=== PATIENT | male | born 1965 | race American Indian/Alaskan Native ===

== ENCOUNTER 2022-03-24 13:06 | Inpatient (IN) | payer OTHER ==
[2022-03-24] MEDS ORDERED: MORPHINE 4 MG/1 ML INJ IV ONE (15:12)
[2022-03-24] MEDS ORDERED: SODIUM CHLORIDE 0.9% 1000 ML 1,000 ML IV ONE (15:12)
[2022-03-24] MEDS ORDERED: ONDANSETRON 4 MG/2 ML INJ IV ONE (15:12)
[2022-03-24] MEDS ORDERED: PANTOPRAZOLE 40 MG INJ IV ONE (15:13)
[2022-03-24 15:48] LABS: Basophils % (Auto) 0.1 % (0.0-1.8); Eosinophils % (Auto) 0.1 % (0.0-4.3); Hematocrit 22.3 % (35.5-45.6); Hemoglobin 6.8 gm/dl (11.8-15.2); Lymphocytes % (Auto) 11.8 % (13.4-35.0); Mean Corpuscular HGB Conc 31 % (32-34); Monocytes # (Auto) 0.4 K/mm3 (0.0-0.8); Monocytes % (Auto) 2.7 % (0.0-7.3); Platelet Count 349 K/mm3 (140-440); Red Blood Count 3.56 M/mm3 (3.65-5.03); Red Cell Distribution Width 19.3 % (13.2-15.2)
[2022-03-24 16:04] LABS: Alanine Aminotransferase 12 units/L (7-56); Albumin 3.8 g/dL (3.9-5); BUN/Creatinine Ratio 6; Blood Urea Nitrogen 7 mg/dL (9-20); Calcium 8.7 mg/dL (8.4-10.2); Hemolysis Index 3
[2022-03-24 16:23] LABS: Mean Corpuscular Volume 63 fl (84-94)
--- NOTE | 2022-03-24 16:55 | Emergency Department Report ---
ED Abdominal Pain HPI - General Chief Complaint: GI Bleed Stated Complaint: RECTAL BLEED Time Seen by Provider: 03/24/22 15:44 Source: patient, EMS Mode of arrival: Wheelchair Limitations: No Limitations - History of Present Illness Initial Comments: 56-year-old male history of hypertension [unknown medications], anemia presenting with abdominal pain rectal bleeding. Patient reports this morning he went to the bathroom and large amount of blood with clots. reports that he has had episodes today when he goes to the bathroom and just blood comes out. States he has had about 4 episodes of this before coming to the emergency department. No diarrhea, symptoms associated with abdominal pain, no vomiting, patient reports he has been feeling well up until this morning. reports about a year ago patient had a colonoscopy done and was told he has some "noncancerous Polyps". He has since not followed up at the Medical. He reports weakness, denies fever chills, no headache, no dizziness, no vision changes. MD Complaint: abdominal pain Severity scale (0 -10): 8 - Related Data Allergies Allergy/AdvReac Type Severity Reaction Status Date / Time No Known Allergies Allergy Unverified 03/24/22 13:28 ED Review of Systems ROS: Stated complaint: RECTAL BLEED Other details as noted in HPI Constitutional: see HPI ENT: as per HPI Respiratory: denies: cough Cardiovascular: denies: chest pain, palpitations, edema Gastrointestinal: abdominal pain, melena. denies: nausea, vomiting Genitourinary: denies: frequency Musculoskeletal: denies: back pain Skin: denies: rash, lesions Neurological: denies: headache, weakness Psychiatric: denies: depression, auditory hallucinations, homicidal thoughts, suicidal thoughts Hematological/Lymphatic: denies: easy bleeding ED Past Medical Hx - Past Medical History Previous Medical History?: Yes Additional medical history: alcohol abuse ED Physical Exam - General Limitations: No Limitations General appearance: alert, in no apparent distress, other (Slender pale appearing male in no acute distress) - Head Head exam: Present: atraumatic - Eye Eye exam: Present: normal appearance (Pale) Pupils: Present: normal accommodation - ENT ENT exam: Present: normal exam - Neck Neck exam: Present: normal inspection - Respiratory Respiratory exam: Present: normal lung sounds bilaterally - Cardiovascular Cardiovascular Exam: Present: regular rate, normal rhythm - GI/Abdominal GI/Abdominal exam: Present: soft, tenderness. Absent: distended - Rectal Rectal exam: Present: normal rectal tone, heme (+) stool, bloody stool - Extremities Exam Extremities exam: Present: normal inspection, full ROM - Back Exam Back exam: Present: normal inspection, full ROM. Absent: CVA tenderness (R), CVA tenderness (L) - Neurological Exam Neurological exam: Present: alert, oriented X3, CN II-XII intact, normal gait - Skin Skin exam: Present: warm, dry, intact, normal color ED Course Vital Signs 03/24/22 13:07 Temperature 98.2 F Pulse Rate 80 Respiratory 16 Rate Blood Pressure 117/87 [Left] O2 Sat by Pulse 96 Oximetry - Consultations Consultation #1: 03/24/22 [address] centeno regarding patient Dr. Centeno gastroenterology 03/24/22 20:17 ED Medical Decision Making - Lab Data Result diagrams: 03/24/22 15:09 03/24/22 15:09 - Medical Decision Making 56-year-old male history of hypertension [unknown medications], anemia presenting with abdominal pain rectal bleeding. Patient reports this morning he went to the bathroom and large amount of blood with clots. reports that he has had episodes today when he goes to the bathroom and just blood comes out. States he has had about 4 episodes of this before coming to the emergency department. No diarrhea, symptoms associated with abdominal pain, no vomiting, patient reports he has been feeling well up until this morning. reports about a year ago patient had a colonoscopy done and was told he has some "noncancerous Polyps". He has since not followed up at the Medical. He reports weakness, denies fever chills, no headache, no dizziness, no vision c hanges. s. Patient reports history of blood transfusions, states he has had transfusions in the past because "he loses blood and they do not seem to know the cause" MPRESSION: 1. There is abnormal wall thickening in the right and proximal transverse colon. The appearance is most suspicious for colitis. 2017-spoke with the hospitalist Dr. Velazquez , "Dr. Wright will be admitting and putting orders go ahead and transfuse 2 units of packed red blood cells". All of the others placed at this time, patient remained stable, I have updated them on the plan for transfusion and admission, also seen by contact person Dr. MIN. Have ordered that type and screen previously, I have called the blood bank to get the blood ready for transfusion. And have also notified the charge nurse patient needs to be moved to the main ED for transfusion His vital signs are stable at this time, pain is controlled. Critical care attestation.: If time is entered above; I have spent that time in minutes in the direct care of this critically ill patient, excluding procedure time. ED Disposition Clinical Impression: Colitis, GI bleed, Hypertension, Abdominal pain Disposition: ADMITTED INPATIENT Is pt being admited?: No Does the pt Need Aspirin: No Condition: Stable Instructions: Hypertension (ED) Referrals: PRIMARY CARE, [Primary Care Provider] - 3-5 Days Forms: Accompanied Note
--- NOTE | 2022-03-24 17:18 | Cat Scan Report ---
CT ABDOMEN AND PELVIS WITH CONTRAST INDICATION / CLINICAL INFORMATION: rectal bleed, abd pain 100ml of [id number]. TECHNIQUE: Axial CT images were obtained through the abdomen and pelvis after 100 cc of Omnipaque [address] scans at this location are performed using CT dose reduction for ALARA by means of automated exposure control. COMPARISON: None available. FINDINGS: LOWER CHEST: No significant abnormality. LIVER: There are 2 hemangiomas in the liver one in the right lobe superiorly and one near the caudate lobe. Both of these show peripheral nodular enhancement measuring approximately 2.3 and 2 cm in diam eter respectively. GALLBLADDER: No significant abnormality. BILE DUCTS: No significant abnormality. PANCREAS: No significant abnormality. SPLEEN: No significant abnormality. ADRENALS: No significant abnormality. RIGHT KIDNEY / URETER: No significant abnormality. LEFT KIDNEY / URETER: No significant abnormality. STOMACH / SMALL BOWEL: No significant abnormality. COLON: There is wall thickening in the right colon and proximal transverse colon. There are scattered diverticula in the colon. APPENDIX: No significant abnormality. PERITONEUM: No free fluid. No free air. No fluid collection. LYMPH NODES: No significant adenopathy. AORTA / ARTERIES: No significant abnormality. IVC / VEINS: No significant abnormality. URINARY BLADDER: No significant abnormality. REPRODUCTIVE ORGANS: No significant abnormality. ADDITIONAL FINDINGS: None. SKELETAL SYSTEM: There is an intramedullary nail system in the left femur. No acute abnormality. IMPRESSION: 1. There is abnormal wall thickening in the right and proximal transverse colon. The appearance is mo st suspicious for colitis. Signer Name: Edgar Haines MD Signed: 03/24/2022 5:14 PM Workstation Name: [id number]
[2022-03-24] MEDS ORDERED: PIPERACIL/TAZOBACTA 4.5/NS 100 4.5 GM/100 ML VIAL IV ONE (18:33)
[2022-03-24 19:21] LABS: INR 1.05 (0.87-1.13)
[2022-03-24] MEDS ORDERED: SODIUM CHLORIDE 0.9% 500 ML 500 ML IV ONE ×2 (20:13→20:14)
--- NOTE | 2022-03-24 20:33 | Gastroenterology Consultation ---
History of Present Illness - Reason for Consult Consult date: 03/24/22 GI bleed Requesting physician: BERNARDINO LAMB - History of Present Illness This is a 56-year-old male with history of GI bleed, diverticulitis, alcohol abuse presenting to the ED for 1 day history of hematochezia. GI consulted for evaluation for GI bleed. Patient reports having episodes of loose stool along with bright red blood. Symptoms started yesterday. Initially he had a diffuse abdominal pain but the pain has improved and currently without any abdominal pain. He does report associated nausea vomiting but no coffee-ground emesis or hematemesis. Denies any fever or chills. Patient reports being admitted at the [facility] few months ago for similar symptoms with GI bleed. Patient states that he had EGD and colonoscopy but not sure about the findings. Denies any recent NSAID use or blood thinning medication use. Medication list reviewed. Past History Past Medical History: other (diverticulitis) Past Surgical History: No surgical history Social history: lives with family Family history: no significant family history Medications and Allergies Allergies Allergy/AdvReac Type Severity Reaction Status Date / Time No Known Allergies Allergy Unverified 03/24/22 13:28 Review of Systems - Review of Systems All systems: negative Constitutional: no weight loss, no fever, no chills Ears, Nose, Throat: no difficulty swallowing Cardiovascular: no chest pain Gastrointestinal: abdominal pain, nausea, vomiting, hematochezia Neurological: weakness Psychiatric: no anxiety Endocrine: no cold intolerance Hematologic/Lymphatic: no easy bruising Allergic/Immunologic: no wheezing Exam - Constitutional Vital Signs: Temp Pulse Resp BP Pulse Ox 98.2 F 72 18 165/97 99 03/24/22 20:01 03/24/22 20:01 03/24/22 20:01 03/24/22 20:01 03/24/22 20:01 General appearance: no acute distress - EENT Eyes: EOM intact - Neck Neck: supple - Respiratory Respiratory effort: normal - Cardiovascular Rhythm: regular Heart Sounds: Present: S1 & S2 - Gastrointestinal General gastrointestinal: Present: soft, non-tender, non-distended - Integumentary Integumentary: Present: clear, warm - Neurologic Neurological: alert and oriented x3 - Psychiatric Psychiatric: appropriate mood/affect - Labs CBC & Chem 7: 03/24/22 15:09 03/24/22 15:09 Lab Results: Laboratory Results - last 24 hr 03/24/22 03/24/22 03/24/22 15:09 15:09 18:39 WBC 16.9 H RBC 3.56 L Hgb 6.8 L Hct 22.3 L MCV 63 L MCH 19 L MCHC 31 L RDW 19.3 H Plt Count 349 Lymph % (Auto) 11.8 L [place] % (Auto) 2.7 Eos % (Auto) 0.1 Baso % (Auto) 0.1 Lymph # (Auto) 2.0 [place] # (Auto) 0.4 Eos # (Auto) 0.0 Baso # (Auto) 0.0 Seg Neutrophils % 85.3 H Seg Neutrophils # 14.4 H PT 15.2 H INR 1.05 APTT 27.0 Sodium 127 L Potassium 4.3 Chloride 92.2 L Carbon Dioxide 20 L Anion Gap 19 BUN 7 L Creatinine 1.1 Estimated GFR > 60 BUN/Creatinine Ratio 6 Glucose 121 H Lactic Acid Calcium 8.7 Total Bilirubin 0.50 AST 25 ALT 12 Alkaline Phosphatase 87 Total Protein 6.5 Albumin 3.8 L Albumin/Globulin Ratio 1.4 Blood Type Crossmatch 03/24/22 03/24/22 18:39 19:05 WBC RBC Hgb Hct MCV MCH MCHC RDW Plt Count Lymph % (Auto) [place] % (Auto) Eos % (Auto) Baso % (Auto) Lymph # (Auto) [place] # (Auto) Eos # (Auto) Baso # (Auto) Seg Neutrophils % Seg Neutrophils # PT INR APTT Sodium Potassium Chloride Carbon Dioxide Anion Gap BUN Creatinine Estimated GFR BUN/Creatinine Ratio Glucose Lactic Acid 1.60 Calcium Total Bilirubin AST ALT Alkaline Phosphatase Total Protein Albumin Albumin/Globulin Ratio Blood Type AB POSITIVE Crossmatch See Detail - Imaging CT Scan: report reviewed Assessment and Plan # Lower GI bleed # hematochezia # colitis -Symptoms of rectal bleeding x1 day. -CT abdomen pelvis concerning for colonic wall thickening and colitis. -Per patient, patient had history of GI bleed with recent admission at [facility] undergoing EGD colonoscopy. -Currently hemodynamically stable. re: -Continue with empiric antibiotic. -Please attempt to obtain records from [facility] especially endoscopic procedure report. -Continue to monitor hemoglobin and transfuse as needed. -Given likely source of bleeding as colitis, will hold off colonoscopy at this time. -If persistent diarrhea, please check for C. difficile. - Patient Problems (1) Colitis Current Visit: Yes Status: Acute (2) GI bleed Current Visit: Yes Status: Acute
[2022-03-24] MEDS ORDERED: ACETAMINOPHEN 325 MG TAB PO PRN (21:38)
[2022-03-24] MEDS ORDERED: MORPHINE 2 MG/1 ML INJ IV PRN (21:38)
[2022-03-24] MEDS ORDERED: MORPHINE 4 MG/1 ML INJ IV PRN (21:38)
[2022-03-24] MEDS ORDERED: ONDANSETRON 4 MG/2 ML INJ IV PRN (21:38)
[2022-03-24] MEDS ORDERED: LORazepam 2 MG/ML VIAL IV PRN ×3 (21:41)
[2022-03-24] MEDS ORDERED: SODIUM CHLORIDE 0.9% 1000 ML 1,000 ML IV SCH (21:45)
--- NOTE | 2022-03-24 21:51 | History and Physical Report ---
History of Present Illness Date of examination: 03/24/22 Date of admission: 03/24/2022 Chief complaint: Abdominal Pain History of present illness: 56-year-old male with known history of hypertension, anemia presenting to the emergency room today complaining of abdominal pain and bloody stool. Bloody stool was central started today. He denies any , denies any nausea or vomiting, denies any use of nonsteroidal anti-inflammatory medication. He however feels weak but denies any fever or chills, no headache or dizziness, no chest pain or shortness of breath. Patient indicates that he had a colonoscopy done about a year ago and was told he has noncancerous polyps. Patient also had a recent admission into [facility] for GI bleed had EGD and colonoscopy, findings unclear. Patient also admits that he drinks alcohol almost on a daily basis. Last alc ohol intake was about 24 hours ago. Drinks about 6 packs of beer daily. He also uses tobacco on a daily basis. He denies any other illicit drug use. Work-up in the emergency room today, lab reveals hemoglobin of 6.8 and hematocrit of 22.3. Sodium of 127 CT of the abdomen and pelvis reveals abnormal wall thickening in the right and proximal transverse colon. Appearance most suspicious for colitis. Sales Technician on-call has been consulted by the ER physician. Patient will be promptly evaluated. Meanwhile patient placed on proton pump inhibitor, empiric IV antibiotics and will be transfused with packed red blood cells. Past History Past Medical History: other (diverticulitis) Past Surgical History: No surgical history Social history: lives with family, smoking, alcohol abuse (Drinks alcohol daily) Family history: no significant family history Medications and Allergies Allergies Allergy/AdvReac Type Severity Reaction Status Date / Time No Known Allergies Allergy Verified 03/24/22 21:41 Active Meds: Active Medications Acetaminophen (Acetaminophen 325 Mg Tab) 650 mg PO Q4H PRN PRN Reason: Pain MILD(1-3)/Fever >100.5/DEL ROSARIO Sodium Chloride (Nacl 0.9% 1000 Ml) 1,000 mls @ 75 mls/hr IV DIRECT GUIDO Lorazepam (Lorazepam 2 Mg/Ml Vial) 2 mg IV Q1H PRN PRN Reason: CIWA-Ar 8-15 Lorazepam (Lorazepam 2 Mg/Ml Vial) 4 mg IV Q1H PRN PRN Reason: CIWA-Ar 16-25 Lorazepam (Lorazepam 2 Mg/Ml Vial) 4 mg IV Q15MIN PRN PRN Reason: CIWA-Ar >25 Morphine Sulfate (Morphine 2 Mg/1 Ml Inj) 2 mg IV Q4H PRN PRN Reason: Pain, Moderate (4-6) Morphine Sulfate (Morphine 4 Mg/1 Ml Inj) 4 mg IV Q4H PRN PRN Reason: Pain , Severe (7-10) Ondansetron HCl (Ondansetron 4 Mg/2 Ml Inj) 4 mg IV Q8H PRN PRN Reason: Nausea And Vomiting Sodium Chloride (Sodium Chloride 0.9% 10 Ml Flush Syringe) 10 ml IV BID GUIDO Sodium Chloride (Sodium Chloride 0.9% 10 Ml Flush Syringe) 10 ml IV PRN PRN PRN Reason: LINE FLUSH Review of Systems Constitutional: no fever, no chills Ears, nose, mouth and throat: no nasal congestion, no sore throat Cardiovascular: no chest pain, no palpitations Respiratory: no cough, no shortness of breath Gastrointestinal: abdominal pain, hematochezia, no nausea, no vomiting, no diarrhea Genitourinary Male: no dysuria, no hematuria, no flank pain Musculoskeletal: no neck pain, no low back pain Integumentary: no rash, no pruritis Neurological: no headaches, no confusion Psychiatric: no anxiety, no depression Endocrine: no polyphagia, no polydipsia, no polyuria, no nocturia Exam - Constitutional Vitals: Temp Pulse Resp BP Pulse Ox 98.2 F 76 16 107/56 100 03/24/22 21:33 03/24/22 21:33 03/24/22 21:33 03/24/22 21:33 03/24/22 21:33 General appearance: Present: no acute distress, well-nourished, other (Moderate pallor) - EENT Eyes: Present: PERRL, EOM intact. Absent: scleral icterus ENT: hearing intact, clear oral mucosa, dentition normal - Neck Neck: Present: supple - Respiratory Respiratory effort: normal Respiratory: bilateral: CTA - Cardiovascular Rhythm: regular Heart Sounds: Present: S1 & S2. Absent: gallop, systolic murmur, diastolic murmur - Extremities Extremities: no ischemia, pulses intact, pulses symmetrical, No edema, normal temperature, normal color, Full ROM Peripheral Pulses: within normal limits - Abdominal General gastrointestinal: Present: soft, non-tender, non-distended, normal bowel sounds. Absent: mass - Integumentary Integumentary: Present: clear, warm, dry, normal turgor. Absent: rash - Musculoskeletal Musculoskeletal: strength equal bilaterally - Psychiatric Psychiatric: appropriate mood/affect, intact judgment & insight, memory intact, cooperative - Neurologic Neurologic: CNII-XII intact, no focal deficits, moves all extremities Results - Labs CBC & Chem 7: 03/24/22 15:09 03/25/22 05:15 Labs: Abnormal lab results 03/24/22 03/24/22 03/24/22 Range/Units 15:09 15:09 18:39 WBC 16.9 H (4.5-11.0) K/mm3 RBC 3.56 L (3.65-5.03) M/mm3 Hgb 6.8 L (11.8-15.2) gm/dl Hct 22.3 L (35.5-45.6) % MCV 63 L (84-94) fl MCH 19 L (28-32) pg MCHC 31 L (32-34) % RDW 19.3 H (13.2-15.2) % Lymph % (Auto) 11.8 L (13.4-35.0) % Seg Neutrophils % 85.3 H (40.0-70.0) % Seg Neutrophils # 14.4 H (1.8-7.7) K/mm3 PT 15.2 H (12.2-14.9) Sec. Sodium 127 L (137-145) mmol/L Chloride 92.2 L (98-107) mmol/L Carbon Dioxide 20 L (22-30) mmol/L BUN 7 L (9-20) mg/dL Glucose 121 H (75-100) mg/dL Albumin 3.8 L (3.9-5) g/dL Crossmatch 03/24/22 Range/Units 18:39 WBC (4.5-11.0) K/mm3 RBC (3.65-5.03) M/mm3 Hgb (11.8-15.2) gm/dl Hct (35.5-45.6) % MCV (84-94) fl MCH (28-32) pg MCHC (32-34) % RDW (13.2-15.2) % Lymph % (Auto) (13.4-35.0) % Seg Neutrophils % (40.0-70.0) % Seg Neutrophils # (1.8-7.7) K/mm3 PT (12.2-14.9) Sec. Sodium (137-145) mmol/L Chloride (98-107) mmol/L Carbon Dioxide (22-30) mmol/L BUN (9-20) mg/dL Glucose (75-100) mg/dL Albumin (3.9-5) g/dL Crossmatch See Detail Assessment and Plan Assessment: 1.GI Bleed 2.Colitis 3.Hypertension 4.Alcohol Abuse 5.Tobacco Abuse Plan: 1.Admit and made NPO 2.Started on Proton pump inhibitor 3.Consult placed to Sales Technician evaluation and recommendation 4.Will monitor CBC. 5. We will also place patient on CIWA protocol. DVT Prophylaxis:Sequential Compression Device Code Status: Full Code
[2022-03-25] MEDS ORDERED: hydrALAZINE 20 MG/1 ML INJ IV PRN (05:27)
[2022-03-25 06:11] LABS: BUN/Creatinine Ratio 9; Blood Urea Nitrogen 10 mg/dL (9-20); Calcium 8.1 mg/dL (8.4-10.2); Hemolysis Index 2
[2022-03-25] MEDS ORDERED: PIPERACILLIN/TAZOBACTAM 3.375 3.375 GM/50 ML BAG IV SCH (07:00)
[2022-03-25] MEDS: PIPERACILLIN/TAZOBACTAM 3.375 3.375 GM/50 ML BAG IV SCH ×2 (09:20→14:21)
[2022-03-25 09:47] LABS: Hematocrit 20.2 % (35.5-45.6); Hemoglobin 6.8 gm/dl (11.8-15.2); Mean Corpuscular HGB Conc 34 % (32-34); Platelet Count 248 K/mm3 (140-440); Red Blood Count 3.07 M/mm3 (3.65-5.03)
[2022-03-25 09:48] LABS: Mean Corpuscular Volume 66 fl (84-94); Red Cell Distribution Width 23.5 % (13.2-15.2)
--- NOTE | 2022-03-25 11:05 | Discharge Summary ---
Providers - Providers Date of Admission: 03/24/22 21:38 Date of discharge: 03/25/22 Attending physician: FREDY HERRERA 03/24/22 20:25 Consult to Physician [CONS] Stat Comment: Consulting Provider: CHAPIS BRYSON Physician Instructions: Reason For Exam: GI BLEED Primary care physician: PROVER Hospitalization Reason for admission: Anemia, hematochezia Condition: Stable Hospital course: This is a 56-year-old male with history of GI bleed, diverticulitis, alcohol abuse presenting to the ED for 1 day history of hematochezia. GI consulted for evaluation for GI bleed. Patient reported having episodes of loose stool along with bright red blood. Symptoms started the day [facility] [employer]. Initially he had a d iffuse abdominal pain but the pain has improved and currently without any abdominal pain. He did report associated nausea vomiting but no coffee-ground emesis or hematemesis. Patient reports being admitted at the [facility] few months ago for similar symptoms with GI bleed. Patient states that he had EGD and colonoscopy but not sure about the findings. Denies any recent NSAID use or blood thinning medication use. The patient was admitted with diagnosis of lower GI bleed, hematochezia and colitis. Patient was started on empiric antibiotics. GI attempting to obtain old records from the [facility]. Patient received 1 unit of PRBCs. We were planning to continue IV antibiotics for colitis and await for findings for endoscopy. However, patient did not want to wait for further hospitalization and work-up. Therefore, patient has opted to sign out AMA. Risk of leaving the hospital were discussed with the patient including bleeding and . Dedicated discharge time 32 minutes Disposition: LEFT AGAINST MEDICAL ADVICE Final Discharge Diagnosis (Prints w/discharge instructions): Lower GI bleed, hematochezia, colitis, anemia requiring blood transfusion Core Measure Documentation - Palliative Care Palliative Care/ Comfort Measures: Not Applicable - Core Measures Any of the following diagnoses?: none Exam - Constitutional Vitals: Temp Pulse Resp BP Pulse Ox 98.9 F 79 18 156/102 100 03/25/22 08:00 03/25/22 08:00 03/25/22 08:00 03/25/22 08:00 03/25/22 08:00 General appearance: Present: no acute distress, well-nourished - EENT Eyes: Present: PERRL ENT: hearing intact, clear oral mucosa - Neck Neck: Present: supple, normal ROM - Respiratory Respiratory effort: normal Respiratory: bilateral: CTA - Cardiovascular Heart Sounds: Present: S1 & S2. Absent: rub, click - Extremities Extremities: pulses symmetrical, No edema Peripheral Pulses: within normal limits - Abdominal General gastrointestinal: Present: soft, non-tender, non-distended, normal bowel sounds Male genitourinary: Present: normal - Integumentary Integumentary: Present: clear, warm, dry - Musculoskeletal Musculoskeletal: gait normal, strength equal bilaterally - Psychiatric Psychiatric: appropriate mood/affect, intact judgment & insight - Neurologic Neurologic: CNII-XII intact, moves all extremities Plan Follow up with: PRIMARY CARE, [Primary Care Provider] - 3-5 Days Forms: AMA Form, Accompanied Note
[2022-03-25 14:10] VITALS: BP 146/98
--- NOTE | 2022-03-25 15:13 | Gastroenterology Progress Note ---
Assessment and Plan # Lower GI bleed # hematochezia # colitis -Symptoms of rectal bleeding x1 day. -CT abdomen pelvis concerning for colonic wall thickening and colitis. -Per patient, patient had history of GI bleed with recent admission at [facility] undergoing EGD colonoscopy. -Currently hemodynamically stable. - hgb still at 6.8 post 1 unit and receiving 2nd unit today. re: -Continue with empiric antibiotic. -Please attempt to obtain records from [facility] especially endoscopic procedure report. -Continue to monitor hemoglobin and transfuse as needed. -Given likely source of bleeding as colitis, will hold off colonoscopy at this time. -If persistent diarrhea, please check for C. difficile. - patient leaving AMA today. needs to follow up in outpatient clinic. - Patient Problems (1) Colitis Current Visit: Yes Status: Acute (2) GI bleed Current Visit: Yes Status: Acute Subjective Date of service: 03/25/22 Interval history: Patient denies any abdominal pain, diarrhea, rectal bleeding. Objective - Constitutional Vitals: Temp Pulse Resp BP Pulse Ox 98 F 68 16 146/98 100 03/25/22 14:10 03/25/22 14:10 03/25/22 14:10 03/25/22 14:10 03/25/22 14:10 General appearance: no acute distress - EENT Eyes: EOM intact ENT: hearing intact - Respiratory Respiratory effort: normal - Cardiovascular Rhythm: regular Heart Sounds: Present: S1 & S2 - Gastrointestinal General gastrointestinal: Present: soft, non-tender, non-distended - Neurologic Neurological: alert and oriented x3 - Labs CBC & Chem 7: 03/25/22 09:32 03/25/22 05:15 Labs: Laboratory Results - last 24 hr 03/24/22 03/24/22 03/24/22 15:09 15:09 18:39 WBC 16.9 H RBC 3.56 L Hgb 6.8 L Hct 22.3 L MCV 63 L MCH 19 L MCHC 31 L RDW 19.3 H Plt Count 349 Lymph % (Auto) 11.8 L [place] % (Auto) 2.7 Eos % (Auto) 0.1 Baso % (Auto) 0.1 Lymph # (Auto) 2.0 [place] # (Auto) 0.4 Eos # (Auto) 0.0 Baso # (Auto) 0.0 Seg Neutrophils % 85.3 H Seg Neutrophils # 14.4 H PT 15.2 H INR 1.05 APTT 27.0 Sodium 127 L Potassium 4.3 Chloride 92.2 L Carbon Dioxide 20 L Anion Gap 19 BUN 7 L Creatinine 1.1 Estimated GFR > 60 BUN/Creatinine Ratio 6 Glucose 121 H Lactic Acid Calcium 8.7 Total Bilirubin 0.50 AST 25 ALT 12 Alkaline Phosphatase 87 Total Protein 6.5 Albumin 3.8 L Albumin/Globulin Ratio 1.4 Blood Type Antibody Screen Crossmatch 03/24/22 03/24/22 03/25/22 18:39 19:05 05:15 WBC RBC Hgb Hct MCV MCH MCHC RDW Plt Count Lymph % (Auto) [place] % (Auto) Eos % (Auto) Baso % (Auto) Lymph # (Auto) [place] # (Auto) Eos # (Auto) Baso # (Auto) Seg Neutrophils % Seg Neutrophils # PT INR APTT Sodium 130 L Potassium 4.6 Chloride 97.5 L Carbon Dioxide 22 Anion Gap 15 BUN 10 Creatinine 1.1 Estimated GFR > 60 BUN/Creatinine Ratio 9 Glucose 84 Lactic Acid 1.60 Calcium 8.1 L Total Bilirubin AST ALT Alkaline Phosphatase Total Protein Albumin Albumin/Globulin Ratio Blood Type AB POSITIVE Antibody Screen Negative Crossmatch See Detail 03/25/22 09:32 WBC 10.6 RBC 3.07 L Hgb 6.8 L Hct 20.2 L MCV 66 L MCH 22 L MCHC 34 RDW 23.5 H Plt Count 248 Lymph % (Auto) [place] % (Auto) Eos % (Auto) Baso % (Auto) Lymph # (Auto) [place] # (Auto) Eos # (Auto) Baso # (Auto) Seg Neutrophils % Seg Neutrophils # PT INR APTT Sodium Potassium Chloride Carbon Dioxide Anion Gap BUN Creatinine Estimated GFR BUN/Creatinine Ratio Glucose Lactic Acid Calcium Total Bilirubin AST ALT Alkaline Phosphatase Total Protein Albumin Albumin/Globulin Ratio Blood Type Antibody Screen Crossmatch
== END 2022-03-25 15:34 | disposition left against medical advice (07) | DRG 392 ==
LOC: ED 13:06 → 4A 21:38
PROVIDERS: ADMIT Internal Medicine Geriatric Medicine; ATTEND Hospitalist
PROC: 30233N1 Transfusion of Nonautologous Red Blood Cells into Peripheral Vein, Percutaneous Approach (ICD-10-PCS; principal; 2022-03-24)
DX: K52.9 Noninfective gastroenteritis and colitis, unspecified (principal); I10 Essential (primary) hypertension; F10.10 Alcohol abuse, uncomplicated; Y90.9 Presence of alcohol in blood, level not specified; Z53.29 Procedure and treatment not carried out because of patient's decision for other reasons; D64.9 Anemia, unspecified
CPT/HCPCS: 36415; 74177; 80048; 80053; 82140; 82270; 85025; 85027; 85610; 85730; 86850; 86900; 86901; 86920; 87040; 96374; 96375; 99285; 99406; G0378; C9113; J0360; J2270; J2405; J2543; J7040; P9016; Q9967